=== PATIENT | female | born 1980 | race Caucasian/White ===

== ENCOUNTER 2016-09-20 20:31 | Emergency (ER) | payer OTHER ==
--- NOTE | 2016-09-20 21:42 | ED NURSING NOTES ---
Clinical Report - Nurses [facility] [address] [place] [address] 09/20/2016 20:32 Patient: LINSEY JOHNSON TRIAGE Triage time 20:36 Sep 20 2016. Acuity: LEVEL 4. Chief Complaint: SORE THROAT and (Ear ache). 20:45 09/20/16. Alert. No acute distress. SEPSIS SCREEN: Sepsis Screen. Negative (no infection suspected/documented). TETE COMA SCORE: [place] Coma Scale: 15- eyes open spontaneously (4); best verbal response- oriented x 4 (5); best motor response- obeys commands (6). --20:45 Eryn Woodard 20:36 09/20/16. BP: 118/54. HR: 71. RR: 16. O2 saturation: 100% on room air. Temp: 97.7 F (oral). Pain level now: 6/10. --20:45 Eryn Woodard. Weight: 53 kg stated. Height/Length: 66 inches Per Patient. BMI: 18.9. --20:44 Eryn Woodard. Medications ProAir HFA Inhalation. --20:41 Eryn Woodard Vicodin Oral. --20:41 Eryn Woodard Aspirin Oral (Tablet 81 mg). --20:41 Eryn Woodard Ibuprofen Oral. --20:41 Eryn Woodard Vitamin D Oral. --20:42 Eryn Woodard Vitamin B 12 Oral. --20:42 Eryn Woodard Vitamin c Oral. --20:42 Eryn Woodard. Medication/allergy information source: the patient. --20:45 Eryn Woodard. Allergies None. --20:43 Eryn Woodard Ultram. (rapid heart rate) --20:43 Eryn Woodard Flexeril. (rapid heart rate) --20:44 Eryn Woodard. History Arrived by private vehicle. Historian: patient. Unaccompanied. Primary physician (Pelon). Onset. (A month and half). ( Pt presents today for sore throat with sharp pain in ear when swallowing. Pt also reports cough. Denies N/V/D. Has been seen by Urgent Care, has an appointment on the . Was sick for about 2 weeks with a "bad bug."). She has had facial pain, hoarseness and ear pain. Reports enlarged lymph nodes (L side of face). No fever. Treatment COMMUNITY COORDINATOR: Took Tylenol and ibuprofen. (Sudafed, theraflu, honey). PAST MEDICAL HX: Strep throat. Mononucleosis. Immunizations: up-to-date. Last normal menstrual period- 2011. Has not received seasonal influenza immunization. SOCIAL HX: Heavy tobacco smoker (cigarette)- less than 1 pack per day. Occasional alcohol use. History of heavy drug use: marijuana. FALL RISK ASSESSMENT: Fall risk assessment completed. No fall risk identified. NUTRITIONAL RISK ASSESSMENT: The nutritional risk assessment revealed no deficiencies. FUNCTIONAL ASSESSMENT: Functional assessment: no impairments noted. LEARNING NEEDS ASSESSMENT: The learning needs assessment revealed no barriers. SKIN INTEGRITY ASSESSMENT: Skin integrity risk assessment completed. No skin integrity risk identified. --20:45 Eryn Woodard. 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 --20:37 Eryn Woodard Pleurisy. Contusion. Back Pain. Tetanus Status. GI Bleeding. Abdominal Pain. LNMP - Last Normal Menstrual Period. Atypical Chest Pain. Immunizations. Chest Wall Pain. Substance Abuse. Anxiety Reaction. Abnormal Test. Tension-Type Headache. Neck Pain. --20:37 Eryn Woodard. ADDITIONAL SURGERIES: Appendectomy. Back Surgery. . Dental Surgery. Hysterectomy. Tubal Ligation. --20:37 Eryn Woodard. Assessment The patient states feels the same. --20:45 Eryn Woodard. Interventions ID band on patient. --20:45 Eryn Woodard. PHYSICAL ASSESSMENT 20:45 09/20/16. Ambulatory to room. GENERAL / NEURO / PSYCH: Alert. Oriented X 4. Appears in no acute distress. HEENT: Pupils equal, round and reactive to light. Hoarse voice. Mucous membranes are pink. RESPIRATORY: Respirations not labored. SKIN: Skin is warm and dry. Normal skin turgor. --20:45 Eryn Woodard. NURSING PROGRESS NOTES 20:45 09/20/16. The plan of care for this patient has been created. Head of bed elevated. Reassurance given. Two patient identifiers checked. Call light placed in reach. Side rails up x 1. Bed placed in lowest position. Brakes of bed on. Patient ready for evaluation- chart flagged and ED physician and PA notified. --20:45 Eryn Woodard 20:45 09/20/16. Patient walked to radiology with tech. (20:45 Sep 20 2016). --20:45 Eryn Woodard 20:46 09/20/16. Patient ID band checked for patient name and birthdate: patient confirmed. Throat swab obtained for rapid strep; labeled in the presence of the patient and sent to lab. --20:46 Eryn Woodard. DISPOSITION / DISCHARGE Condition at departure: improved. No learning barriers present. Discharge instructions provided and reviewed with the patient. Reviewed medication(s) side effects, precautions, dosing and course information. Prescription(s) given to the patient. Patient verbalized understanding. Written instructions provided in Latvian. The patient was discharged home. She left the Emergency Department ambulatory and via private vehicle. Patient driving. Medication list reviewed and validated. --22:37 Effie Centeno R.N. 22:36 09/20/16. BP: 114/64. HR: 67. RR: 20. O2 saturation: 99%. Temp: deferred. Pain level now: 02/15. 20:36 09/20/16. BP: 118/54. HR: 71. RR: 16. O2 saturation: 100% on room air. Temp: 97.7 F (oral). Pain level now: 01/16. --22:37 Effie Centeno R.N. Locked/Released at 09/20/2016 22:37 by Effie Centeno R.N.
--- NOTE | 2016-09-20 21:42 | ED NURSING NOTES ---
Clinical Report - Nurses [facility] [address] [place] [address] 09/20/2016 20:32 Patient: LINSEY JOHNSON TRIAGE Triage time 20:36 Sep 20 2016. Acuity: LEVEL 4. Chief Complaint: SORE THROAT and (Ear ache). 20:45 09/20/16. Alert. No acute distress. SEPSIS SCREEN: Sepsis Screen. Negative (no infection suspected/documented). TETE COMA SCORE: [place] Coma Scale: 15- eyes open spontaneously (4); best verbal response- oriented x 4 (5); best motor response- obeys commands (6). --20:45 Eryn Woodard 20:36 09/20/16. BP: 118/54. HR: 71. RR: 16. O2 saturation: 100% on room air. Temp: 97.7 F (oral). Pain level now: 6/10. --20:45 Eryn Woodard. Weight: 53 kg stated. Height/Length: 66 inches Per Patient. BMI: 18.9. --20:44 Eryn Woodard. Medications ProAir HFA Inhalation. --20:41 Eryn Woodard Vicodin Oral. --20:41 Eryn Woodard Aspirin Oral (Tablet 81 mg). --20:41 Eryn Woodard Ibuprofen Oral. --20:41 Eryn Woodard Vitamin D Oral. --20:42 Eryn Woodard Vitamin B 12 Oral. --20:42 Eryn Woodard Vitamin c Oral. --20:42 Eryn Woodard. Medication/allergy information source: the patient. --20:45 Eryn Woodard. Allergies None. --20:43 Eryn Woodard Ultram. (rapid heart rate) --20:43 Eryn Woodard Flexeril. (rapid heart rate) --20:44 Eryn Woodard. History Arrived by private vehicle. Historian: patient. Unaccompanied. Primary physician (Pelon). Onset. (A month and half). ( Pt presents today for sore throat with sharp pain in ear when swallowing. Pt also reports cough. Denies N/V/D. Has been seen by Urgent Care, has an appointment on the . Was sick for about 2 weeks with a "bad bug."). She has had facial pain, hoarseness and ear pain. Reports enlarged lymph nodes (L side of face). No fever. Treatment IT GENERALIST: Took Tylenol and ibuprofen. (Sudafed, theraflu, honey). PAST MEDICAL HX: Strep throat. Mononucleosis. Immunizations: up-to-date. Last normal menstrual period- 2011. Has not received seasonal influenza immunization. SOCIAL HX: Heavy tobacco smoker (cigarette)- less than 1 pack per day. Occasional alcohol use. History of heavy drug use: marijuana. FALL RISK ASSESSMENT: Fall risk assessment completed. No fall risk identified. NUTRITIONAL RISK ASSESSMENT: The nutritional risk assessment revealed no deficiencies. FUNCTIONAL ASSESSMENT: Functional assessment: no impairments noted. LEARNING NEEDS ASSESSMENT: The learning needs assessment revealed no barriers. SKIN INTEGRITY ASSESSMENT: Skin integrity risk assessment completed. No skin integrity risk identified. --20:45 Eryn Woodard. 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 --20:37 Eryn Woodard Pleurisy. Contusion. Back Pain. Tetanus Status. GI Bleeding. Abdominal Pain. LNMP - Last Normal Menstrual Period. Atypical Chest Pain. Immunizations. Chest Wall Pain. Substance Abuse. Anxiety Reaction. Abnormal Test. Tension-Type Headache. Neck Pain. --20:37 Eryn Woodard. ADDITIONAL SURGERIES: Appendectomy. Back Surgery. . Dental Surgery. Hysterectomy. Tubal Ligation. --20:37 Eryn Woodard. Assessment The patient states feels the same. --20:45 Eryn Woodard. Interventions ID band on patient. --20:45 Eryn Woodard. PHYSICAL ASSESSMENT 20:45 09/20/16. Ambulatory to room. GENERAL / NEURO / PSYCH: Alert. Oriented X 4. Appears in no acute distress. HEENT: Pupils equal, round and reactive to light. Hoarse voice. Mucous membranes are pink. RESPIRATORY: Respirations not labored. SKIN: Skin is warm and dry. Normal skin turgor. --20:45 Eryn Woodard. NURSING PROGRESS NOTES 20:45 09/20/16. The plan of care for this patient has been created. Head of bed elevated. Reassurance given. Two patient identifiers checked. Call light placed in reach. Side rails up x 1. Bed placed in lowest position. Brakes of bed on. Patient ready for evaluation- chart flagged and ED physician and PA notified. --20:45 Eryn Woodard 20:45 09/20/16. Patient walked to radiology with tech. (20:45 Sep 20 2016). --20:45 Eryn Woodard 20:46 09/20/16. Patient ID band checked for patient name and birthdate: patient confirmed. Throat swab obtained for rapid strep; labeled in the presence of the patient and sent to lab. --20:46 Eryn Woodard. DISPOSITION / DISCHARGE Condition at departure: improved. No learning barriers present. Discharge instructions provided and reviewed with the patient. Reviewed medication(s) side effects, precautions, dosing and course information. Prescription(s) given to the patient. Patient verbalized understanding. Written instructions provided in Yi. The patient was discharged home. She left the Emergency Department ambulatory and via private vehicle. Patient driving. Medication list reviewed and validated. --22:37 Effie Centeno R.N. 22:36 09/20/16. BP: 114/64. HR: 67. RR: 20. O2 saturation: 99%. Temp: deferred. Pain level now: 02/15. 20:36 09/20/16. BP: 118/54. HR: 71. RR: 16. O2 saturation: 100% on room air. Temp: 97.7 F (oral). Pain level now: 01/16. --22:37 Effie Centeno R.N. Locked/Released at 09/20/2016 22:37 by Effie Centeno R.N.
--- NOTE | 2016-09-20 21:42 | ED ORDER SUMMARY ---
..... Patient: LINSEY JOHNSON OrderSheet [facility] VisitID: [id number] [address] [place] [address] 36y, F Registration Date/Time: 09/20/2016 ORDER SHEET Weight: 53.0 kg (stated) Allergies: None, Ultram, Flexeril GENERAL ORDERS: Chest 2V Urgent (20:43 09/20/2016 EKoroleangelo P.A.-C) (Ack 20:45 AMcQuoid ER Tech1) (20:46 ASchmuck) Culture, Strep Screen Urgent (20:43 09/20/2016 EKoroleva P.A.-C) (Ack 20:45 AMcQuoid ER Tech1) (20:46 ASchmuck) MEDICATION ORDERS: IV FLUIDS: ORDER SHEET NOTES: [Electronically signed by Amy HawkinsAEduard (22:22 09/20/2016)] [Electronically signed by Effie Centeno R.N. (22:37 09/20/2016)] [Electronically locked/signed by Effie Centeno R.N. (22:37 09/20/2016)]
--- NOTE | 2016-09-20 21:42 | ED CLINICAL REPORT ---
Clinical Report - Physicians/Mid Levels [facility] [address] [place] [address] 09/20/2016 20:32 [id number] Time Seen: 20:44 Sep 20 2016. Arrived- By private vehicle. Historian- patient. HISTORY OF PRESENT ILLNESS Chief Complaint: SORE THROAT. This started today and is still present. Pain described as moderate. The patient has had a sore throat, nasal congestion and a nasal discharge. No toothache. (Patient has been ill over the last 4-6 weeks, recently seen in the urgent care clinic about 2 weeks previously,has had a viral illness. Has not been on antibiotics. No hemoptysis. Has not had any recent travel. No emesis or diarrhea.). REVIEW OF SYSTEMS No fever, abdominal pain or headache. She has had a cough. All systems otherwise negative, except as recorded above. 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 Pleurisy. Contusion. Back Pain. Tetanus Status. GI Bleeding. Abdominal Pain. LNMP - Last Normal Menstrual Period. Atypical Chest Pain. Immunizations. Substance Abuse. Anxiety Reaction. Abnormal Test. Tension-Type Headache. Neck Pain. Additional Surgeries: Appendectomy. Back Surgery. . Dental Surgery. Hysterectomy. Tubal Ligation. Medications: Vitamin c Oral. Vitamin B 12 Oral. Vitamin D Oral. Ibuprofen Oral. Aspirin Oral (Tablet 81 mg). Vicodin Oral. ProAir HFA Inhalation. Allergies: Flexeril. (rapid heart rate) None. Ultram. (rapid heart rate). SOCIAL HISTORY Smoker- current status unknown. Alcohol use. History of drug use: marijuana. Not an IV drug user. ADDITIONAL NOTES The nursing notes have been reviewed. PHYSICAL EXAM Vital Signs: 09/20/2016 20:36 BP: 118/54. HR: 71. RR: 16. O2 saturation: 100%. Temp: 97.7 F. Pain level now: 6/10. Appearance: Alert. Head: Normal external inspection. ENT: Ears normal. Nose normal. Pharynx normal. Lips normal. No trismus present. Uvula midline. No tonsillar exudate, muffled or hoarse voice or dental decay. Neck: Trachea midline. No adenopathy. No lymphadenopathy. CVS: Normal heart rate and rhythm. Heart sounds normal. Respiratory: No respiratory distress. Breath sounds normal. No stridor or rales. Abdomen: Soft. Skin: Normal skin color. Neuro: Oriented X 3. LABS, X-RAYS, AND EKG Chest X-ray: No acute disease. Normal lung markings present. Normal heart size. Mediastinum normal. Great vessels normal. No fracture. Views: PA and lateral. Technique: good. Interpretation time: 2149. Laboratory Tests: Culture, Strep Screen: (KAYLEIGH: 09/20/2016 20:45) ( MsgRcvd 09/20/2016 21:40) Final results Test Result Flag Units (Reference) RAPID STREP SCREEN - THROAT DATE: 09/20/16 NEGATIVE SCREEN: RAPID STREP SCREEN NEGATIVE; CONFIRMATION TO FOLLOW . PROGRESS AND PROCEDURES Course of Care: Ongoing sx for months. Patient afebrile. NO lymphadneopathy. Lungs clear. WIll tx for bronchitis. Pt stable. Uvula midline. Euvolimic. CXR neg. 09/20/2016 20:36 BP: 118/54. HR: 71. RR: 16. O2 saturation: 100%. Temp: 97.7 F. Pain level now: 6/10. Patient is stable. Symptoms better. Patient/family counseled. Differential Diagnosis: I considered viral bronchitis, laryngotracheobronchitis, viral pneumonia, bacterial bronchitis, bacterial pneumonia, mycoplasmal bronchitis, chlamydial bronchitis and bronchospasm as a possible cause of cough in this patient. This is a partial list of diagnoses considered. Disposition: Discharged. CLINICAL IMPRESSION Bronchitis. INSTRUCTIONS Drink plenty of fluids. Prescription Medications: Zithromax 250 mg tablets: take 2 orally today, followed by 1 daily for the next 4 days. No refills. Substitution is permissible. Ibuprofen 600 mg tablets: take 1 tablet orally every 8 hours for 3 days, as needed for pain. Dispense ten (10). No refill. OTC Medications: Tylenol ER 650 mg (available over the counter): take 1 orally every 8 hours for 3 days, as needed for fever. Dispense ten (10). No refill. Substitution is permissible. Follow-up: Follow up with your doctor in three days. (Electronically signed by Amy Hawkins P.A.-C 09/20/2016 22:22)
--- NOTE | 2016-09-20 21:42 | ED ORDER SUMMARY ---
..... Patient: LINSEY JOHNSON OrderSheet [facility] VisitID: [id number] [address] [place] [address] 36y, F Registration Date/Time: 09/20/2016 ORDER SHEET Weight: 53.0 kg (stated) Allergies: None, Ultram, Flexeril GENERAL ORDERS: Chest 2V Urgent (20:43 09/20/2016 EKoroleangelo P.A.-C) (Ack 20:45 AMcQuoid ER Tech1) (20:46 ASchmuck) Culture, Strep Screen Urgent (20:43 09/20/2016 EKoroleva P.A.-C) (Ack 20:45 AMcQuoid ER Tech1) (20:46 ASchmuck) MEDICATION ORDERS: IV FLUIDS: ORDER SHEET NOTES: [Electronically signed by Amy HawkinsAEduard (22:22 09/20/2016)] [Electronically signed by Effie Centeno R.N. (22:37 09/20/2016)] [Electronically locked/signed by Effie Centeno R.N. (22:37 09/20/2016)]
--- NOTE | 2016-09-20 22:38 | ED MED RECONCILIATION SUMMARY ---
Patient: LINSEY JOHNSON Medication Reconciliation Report [facility] VisitID: [id number] [address] [place] [address] 36y, F Registration Date/Time: 09/20/2016 Weight: 53.0 kg Height/Length: 66 in. BMI: 18.9 ALLERGIES: Flexeril, None, Ultram The patient's Home Medications are listed below: THE FOLLOWING MEDICATIONS NEED TO BE RECONCILED: Aspirin Oral (81 mg) Ibuprofen Oral ProAir HFA Inhalation Vicodin Oral Vitamin B 12 Oral Vitamin c Oral Vitamin D Oral The source(s) of the original Home Medication information: patient The following Medications were given to the patient in the Emergency Department: None. The following Medications were prescribed to the patient: Zithromax 250 mg tablets: take 2 orally today, followed by 1 daily for the next 4 days. No refills. Substitution is permissible. -- Amy Hawkins, P.A.-C Ibuprofen 600 mg tablets: take 1 tablet orally every 8 hours for 3 days, as needed for pain. Dispense ten (10). No refill. -- Amy Hawkins, P.A.-C Tylenol ER 650 mg (available over the counter): take 1 orally every 8 hours for 3 days, as needed for fever. Dispense ten (10). No refill. Substitution is permissible. -- Amy Hawkins, P.A.-C
--- NOTE | 2016-09-20 22:38 | ED MAR SUMMARY ---
..... Medication Administration Record [facility] [address], [place] [id number] Patient: LINSEY JOHNSON Visit ID: [id number] 36y, F Weight: 53.0 kg Height/Length: 66 in BMI: 18.9 ALLERGIES: Flexeril, Ultram, None
--- NOTE | 2016-09-20 22:38 | ED MED RECONCILIATION SUMMARY ---
Patient: LINSEY JOHNSON Medication Reconciliation Report [facility] VisitID: [id number] [address] [place] [address] 36y, F Registration Date/Time: 09/20/2016 Weight: 53.0 kg Height/Length: 66 in. BMI: 18.9 ALLERGIES: Flexeril, None, Ultram The patient's Home Medications are listed below: THE FOLLOWING MEDICATIONS NEED TO BE RECONCILED: Aspirin Oral (81 mg) Ibuprofen Oral ProAir HFA Inhalation Vicodin Oral Vitamin B 12 Oral Vitamin c Oral Vitamin D Oral The source(s) of the original Home Medication information: patient The following Medications were given to the patient in the Emergency Department: None. The following Medications were prescribed to the patient: Zithromax 250 mg tablets: take 2 orally today, followed by 1 daily for the next 4 days. No refills. Substitution is permissible. -- Amy Hawkins, P.A.-C Ibuprofen 600 mg tablets: take 1 tablet orally every 8 hours for 3 days, as needed for pain. Dispense ten (10). No refill. -- Amy Hawkins, P.A.-C Tylenol ER 650 mg (available over the counter): take 1 orally every 8 hours for 3 days, as needed for fever. Dispense ten (10). No refill. Substitution is permissible. -- Amy Hawkins, P.A.-C
--- NOTE | 2016-09-20 22:38 | ED MAR SUMMARY ---
..... Medication Administration Record [facility] [address], [place] [id number] Patient: LINSEY JOHNSON Visit ID: [id number] 36y, F Weight: 53.0 kg Height/Length: 66 in BMI: 18.9 ALLERGIES: Flexeril, Ultram, None
--- NOTE | 2016-09-20 22:38 | ED DISCHARGE INSTRUCTIONS ---
Patient: LINSEY JOHNSON General Instructions [facility] VisitID: [id number] [address] [place] [address] 36y, F Registration Date/Time: 09/20/2016 Bronchitis. INSTRUCTIONS Drink plenty of fluids. Prescription Medications: Zithromax 250 mg tablets: take 2 orally today, followed by 1 daily for the next 4 days. No refills. Substitution is permissible. Ibuprofen 600 mg tablets: take 1 tablet orally every 8 hours for 3 days, as needed for pain. Dispense ten (10). No refill. OTC Medications: Tylenol ER 650 mg (available over the counter): take 1 orally every 8 hours for 3 days, as needed for fever. Dispense ten (10). No refill. Substitution is permissible. Follow-up: Follow up with your doctor in three days. ADDITIONAL INFORMATION Bronchitis (Adult: Abx Tx) BRONCHITIS is an infection of the air passages (bronchial tubes). It often occurs during the common cold. Symptoms include cough with mucus (phlegm) and low-grade fever. Bronchitis usually lasts 7-14 days. Mild cases can be treated with simple home remedies. More severe infection is treated with an antibiotic. Home Care: If symptoms are severe, rest at home for the first 2-3 days. When you resume activity, don't let yourself get too tired. Do not smoke. Avoid being exposed to the smoke of others. You may use acetaminophen (Tylenol) or ibuprofen (Motrin, Advil) to control fever or pain, unless another medicine was prescribed for this. [NOTE: If you have chronic liver or kidney disease or ever had a stomach ulcer or GI bleeding, talk with your doctor before using these medicines.] Your appetite may be poor, so a light diet is fine. Avoid dehydration by drinking 6-8 glasses of fluids per day (water, soft, drinks, juices, tea, soup, etc.). Extra fluids will help loosen secretions in the lungs. [id number] cough medicines that containdextromethorphan(such as Robitussin DM) and decongestants (Actifed or Sudafed) may help relieve cough and congestion. [NOTE: Do not use decongestants if you have high blood pressure.] Finish all antibiotic medicine, even if you are feeling better after only a few days. Follow Up with your doctor or as directed if you dont start to feel better after three days. [NOTE: If you are age 65 or older, or if you have chronic asthma or COPD, we recommend a PNEUMOCOCCAL VACCINATION every five years and a yearly INFLUENZAVACCINATION (FLU-SHOT) every . Ask your doctor about this. If you had an X-ray, a radiologist will review it. You will be notified of any new findings that may affect your care.] Get Prompt Medical Attention if any of the following occur: Fever over 100.4F (38.0C) for more than three days Trouble breathing, wheezing or pain with breathing Coughing up blood or increased amounts of colored sputum Weakness, drowsiness, headache, facial pain, ear pain or a stiff neck You have been given the following additional information: Bronchitis, Antiobiotic Treatment (Adult) (Electronically signed by Amy Hawkins P.A.-C 09/20/2016 22:22)
--- NOTE | 2016-09-20 23:28 | DIAGNOSTIC IMAGING REPORT ---
PROCEDURE: XR CHEST 2 VIEW INDICATION: FEVER TECHNIQUE: PA and lateral views. COMPARISON: Compared to 05/21/2016. FINDINGS: Lungs are clear. Heart and mediastinum are normal. Thorax is normal. IMPRESSION: 1. Negative chest.
== END 2016-09-20 22:15 | disposition home or self-care (01) ==
LOC: ED SRH 20:31
DX: J40 Bronchitis, not specified as acute or chronic (principal); F17.210 Nicotine dependence, cigarettes, uncomplicated; Z88.8 Allergy status to other drugs, medicaments and biological substances
CPT/HCPCS: 90154; 90159

== ENCOUNTER 2016-10-12 06:40 | Emergency (ER) | payer OTHER ==
--- NOTE | 2016-10-12 08:04 | ED CLINICAL REPORT ---
Clinical Report - Physicians/Mid Levels [facility] [address] [place] [address] 10/12/2016 6:40 Patient: LINSEY JOHNSON Time Seen: 06:52. Arrived- By private vehicle. Historian- patient. HISTORY OF PRESENT ILLNESS Chief Complaint: Chief Complaint- R knee pain. The injury happened last night Pt has a h/o chronic knee pain, which has been acting up for 2 weeks, but got worse last night. No acute injury. Occurred at home. Injury secondary to other mechansim (PT has an injury dating back to when she was 12, and has had issues with the knee ever since.). Patient is experiencing moderate pain. No other injury. REVIEW OF SYSTEMS The patient complains of pain on weight bearing. She has had swelling. No tingling, weakness, numbness, suspected foreign body or skin laceration. All systems otherwise negative, except as recorded above. 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 Infectious Mononucleosis. Tetanus Status. LNMP - Last Normal Menstrual Period. Immunizations. Substance Abuse. Anxiety Reaction. Tension-Type Headache. Additional Surgeries: Appendectomy. Back Surgery. . Dental Surgery. Hysterectomy. Tubal Ligation. Medications: Potassium Chloride Oral. Aspirin Oral (Tablet 81 mg). Ibuprofen Oral. ProAir HFA Inhalation. Vicodin Oral 7.5 mg, 4x a day. Vitamin B 12 Oral. Vitamin c Oral. Vitamin D Oral. Allergies: No Known Drug Allergy. SOCIAL HISTORY Smoker- current status unknown. History of drug use: marijuana. No alcohol use. ADDITIONAL NOTES The nursing notes have been reviewed. PHYSICAL EXAM Vital Signs: 10/12/2016 06:45 BP: 119/72. HR: 96. RR: 16. O2 saturation: 98%. Temp: 98 F. Pain level now: 6/10. Have been reviewed. Appearance: Alert. Oriented X3. No acute distress. Head: Head atraumatic. Eyes: Eyes normal inspection. ENT: Nose normal. Neck: Normal inspection. No decreased ROM in the neck. CVS: Pulses normal. Respiratory: No respiratory distress. Back: ROM normal. Skin: Skin intact. Skin warm and dry. Normal skin color. Normal skin turgor. Extremities: Right knee: moderate tenderness located in the suprapatellar area, medial joint line and lateral joint line. Limited ROM secondary to pain (diminished flexion). Neurovascular intact distally. (ROM limitation is mild.). No ligamentous laxity present. No joint effusion. No erythema, swelling, laceration, abrasion or ecchymosis. No puncture wound, foreign body or deformity. Lower extremity exam otherwise negative. Extremities otherwise negative. Gait: Gait not tested due to pain. Neuro, Vascular and Tendons: Vascular status intact. Sensation intact. Motor intact. Tendon function intact. Neuro: Oriented X 3. No motor deficit. No sensory deficit. LABS, X-RAYS, AND EKG Rt Knee X-ray: No fracture. Normal alignment. No bony lesion, air in the soft tissue or foreign body. Soft tissues normal. Joint spaces normal. Views: AP, lateral and oblique. Technique: good. The X-rays were independently viewed by me and interpreted contemporaneously by me. Prior films were not available for comparison. Pulse Oximetry: 10/12/2016 06:45 O2 saturation: 98%. (FIO2 - room air). Interpretation: normal. PROGRESS AND PROCEDURES Course of Care: X-ray was negative. Pt was treated symptomatically with Toradol (she is driving). I d/w her that she may need to have another MRI. I will refer her to ortho, or she may see her PCP for this (Pelon). Patient counseled in person regarding the patient's stable condition, test results, diagnosis and need for follow-up. Concerns were addressed. Old medical records reviewed. Disposition: Discharged. Condition: stable and improved. CLINICAL IMPRESSION (Knee pain, chronic, with acute exacerbation, uncertain etiology.). INSTRUCTIONS Apply ice for 20 minutes three times a day as needed and until better. Don't apply ice directly to skin and don't use while asleep. You may walk and bear weight as tolerated. (Your x-rays look great. Please follow up with the orthopedic surgeon, as well as with Dr. Bird, to schedule an MRI and discuss options for management.). Warnings: GENERAL WARNINGS: Return or contact your physician immediately if your condition worsens or changes unexpectedly, if not improving as expected, or if other problems arise. Your Current Medications: CONTINUE TAKING THE FOLLOWING MEDICATIONS: Aspirin Oral : Tablet 81 mg. Ibuprofen Oral. Potassium Chloride Oral. ProAir HFA Inhalation. Vicodin Oral : 7.5 mg 4x a day. Vitamin B 12 Oral. Vitamin c Oral. Vitamin D Oral. Prescription Medications: Percocet 5 mg/325 mg: take 1-2 tablets orally every 4 hours as needed for pain. Dispense twelve (12). No refill. Substitution is permissible. Understanding of the discharge instructions verbalized by patient. Follow-up with: [facility], , [address], , [place], [address] Follow up. Call for the next available appointment. Reason for referral: Follow up ER visit for knee pain. (Electronically signed by Evette Thompson MD 10/12/2016 18:02)
--- NOTE | 2016-10-12 08:04 | ED NURSING NOTES ---
Clinical Report - Nurses [facility] [address] [place] [address] 10/12/2016 6:40 Patient: LINSEY JOHNSON TRIAGE Triage time 06:45. Chief Complaint: RIGHT LOWER EXTREMITY PAIN. Location of symptoms- right knee. 06:51. --06:51 Jose Antonio Farooq R.N. 06:45 10/12/16. BP: 119/72. HR: 96. RR: 16. O2 saturation: 98%. Temp: 98 F. Pain level now: 01/16. --06:51 Jose Antonio Farooq R.N. Acuity: LEVEL 4. --06:51 Jose Antonio Farooq R.N. Weight: 53 kg stated. Height/Length: 66 inches Per Patient. BMI: 18.9. --06:49 Jose Antonio Farooq R.N. Medications Aspirin Oral (Tablet 81 mg). Ibuprofen Oral. ProAir HFA Inhalation. Vicodin Oral 7.5 mg, 4x a day. Vitamin B 12 Oral. Vitamin c Oral. Vitamin D Oral. --06:48 Jose Antonio Farooq R.N. Potassium Chloride Oral. --06:48 Jose Antonio Farooq R.N. Medication/allergy information source: the patient. --06:51 Jose Antonio Farooq R.N. Allergies No Known Drug Allergy. --06:49 Jose Antonio Farooq R.N. History Arrived by private vehicle. Historian: patient. Unaccompanied. Primary physician (Pelon). No injury occurred. This occurred (2 weeks ago). ( Patient reports right knee pain for about 2 weeks, which is much worse this AM, states it was swollen earlier at home). Treatment BENEFIT SPECIALIST: Ice and took ibuprofen. (Hydrocodone). PAST MEDICAL HX: Tetanus status: up-to-date. Immunizations: up-to-date. The patient has had a hysterectomy. SOCIAL HX: Current every day light tobacco smoker- less than 1/2 a pack per day. History of occasional drug use: marijuana. No alcohol use. ABUSE ASSESSMENT: No report of abuse. FALL RISK ASSESSMENT: Fall risk assessment completed. No fall risk identified. NUTRITIONAL RISK ASSESSMENT: The nutritional risk assessment revealed no deficiencies. FUNCTIONAL ASSESSMENT: Functional assessment: no impairments noted. LEARNING NEEDS ASSESSMENT: The learning needs assessment revealed no barriers. SKIN INTEGRITY ASSESSMENT: Skin integrity risk assessment completed. No skin integrity risk identified. --06:51 Jose Antonio Farooq R.N. 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 --06:49 Jose Antonio Farooq R.N. Bronchitis. Infectious Mononucleosis. Strep Throat. Back Pain. Substance Abuse. Anxiety Reaction. Tension-Type Headache. --06:49 Jose Antonio Farooq R.N. ADDITIONAL SURGERIES: Appendectomy. Back Surgery. . Dental Surgery. Hysterectomy. Tubal Ligation. --06:49 Jose Antonio Farooq R.N. Interventions To treatment room. --06:51 Jose Antonio Farooq R.N. PHYSICAL ASSESSMENT 06:52. Ambulatory to room. GENERAL / NEURO / PSYCH: Oriented X 4. Alert. EXTREMITIES: Neuro-vascular status intact to the extremity. SKIN: Skin intact. Skin is warm and dry. --06:52 Jose Antonio Farooq R.N. NURSING PROGRESS NOTES 06:52. Two patient identifiers checked. Call light placed in reach. Bed placed in lowest position. Brakes of bed on. Patient ready for evaluation- chart flagged. --06:52 Jose Antonio Farooq R.N. 07:03. Care transferred and report given (Devin SAMSON). --07:03 Jose Antonio Farooq R.N. 07:06 10/12/16. Care transferred and report received. --07:06 Devin Sadler R.N. 07:20 10/12/16. Two patient identifiers checked. Call light placed in reach. Bed placed in lowest position. Brakes of bed on. Patient informed about reason for wait and about plan of care. ( pt ambulated to bathroom with limp.). --07:20 Swapna Barrientos R.N. 07:24 10/12/16. ( X-ray completed at bedside). --07:25 Devin Sadler R.N. 08:22 10/12/2016 Toradol (Ketorolac Tromethamine) IM 60 mg given. Given in the right anterior lateral thigh. Allergies verified and confirmed 5 rights. --08:22 Swapna Barrientos R.N. DISPOSITION / DISCHARGE 08:41 10/12/16. No learning barriers present. Discharge instructions provided and reviewed with the patient. Reviewed warnings. Reviewed medication(s). Treatments reviewed. Reviewed referrals. Activity restrictions reviewed. Work note given. Patient verbalized understanding. The patient was discharged by the physician. She was discharged home. She left the Emergency Department ambulatory and via private vehicle. Patient driving. --08:41 Swapna Barrientos R.N. 08:37 10/12/16. BP: 118/86. HR: 74. RR: 17. O2 saturation: 95% on room air. Temp: deferred. Pain level now: 01/16. --08:41 Swapna Barrientos R.N. Locked/Released at 10/12/2016 10:04 by Swapna Barrientos R.N.
--- NOTE | 2016-10-12 08:04 | ED CLINICAL REPORT ---
Clinical Report - Physicians/Mid Levels [facility] [address] [place] [address] 10/12/2016 6:40 Patient: LINSEY JOHNSON Time Seen: 06:52. Arrived- By private vehicle. Historian- patient. HISTORY OF PRESENT ILLNESS Chief Complaint: Chief Complaint- R knee pain. The injury happened last night Pt has a h/o chronic knee pain, which has been acting up for 2 weeks, but got worse last night. No acute injury. Occurred at home. Injury secondary to other mechansim (PT has an injury dating back to when she was 12, and has had issues with the knee ever since.). Patient is experiencing moderate pain. No other injury. REVIEW OF SYSTEMS The patient complains of pain on weight bearing. She has had swelling. No tingling, weakness, numbness, suspected foreign body or skin laceration. All systems otherwise negative, except as recorded above. 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 Infectious Mononucleosis. Tetanus Status. LNMP - Last Normal Menstrual Period. Immunizations. Substance Abuse. Anxiety Reaction. Tension-Type Headache. Additional Surgeries: Appendectomy. Back Surgery. . Dental Surgery. Hysterectomy. Tubal Ligation. Medications: Potassium Chloride Oral. Aspirin Oral (Tablet 81 mg). Ibuprofen Oral. ProAir HFA Inhalation. Vicodin Oral 7.5 mg, 4x a day. Vitamin B 12 Oral. Vitamin c Oral. Vitamin D Oral. Allergies: No Known Drug Allergy. SOCIAL HISTORY Smoker- current status unknown. History of drug use: marijuana. No alcohol use. ADDITIONAL NOTES The nursing notes have been reviewed. PHYSICAL EXAM Vital Signs: 10/12/2016 06:45 BP: 119/72. HR: 96. RR: 16. O2 saturation: 98%. Temp: 98 F. Pain level now: 6/10. Have been reviewed. Appearance: Alert. Oriented X3. No acute distress. Head: Head atraumatic. Eyes: Eyes normal inspection. ENT: Nose normal. Neck: Normal inspection. No decreased ROM in the neck. CVS: Pulses normal. Respiratory: No respiratory distress. Back: ROM normal. Skin: Skin intact. Skin warm and dry. Normal skin color. Normal skin turgor. Extremities: Right knee: moderate tenderness located in the suprapatellar area, medial joint line and lateral joint line. Limited ROM secondary to pain (diminished flexion). Neurovascular intact distally. (ROM limitation is mild.). No ligamentous laxity present. No joint effusion. No erythema, swelling, laceration, abrasion or ecchymosis. No puncture wound, foreign body or deformity. Lower extremity exam otherwise negative. Extremities otherwise negative. Gait: Gait not tested due to pain. Neuro, Vascular and Tendons: Vascular status intact. Sensation intact. Motor intact. Tendon function intact. Neuro: Oriented X 3. No motor deficit. No sensory deficit. LABS, X-RAYS, AND EKG Rt Knee X-ray: No fracture. Normal alignment. No bony lesion, air in the soft tissue or foreign body. Soft tissues normal. Joint spaces normal. Views: AP, lateral and oblique. Technique: good. The X-rays were independently viewed by me and interpreted contemporaneously by me. Prior films were not available for comparison. Pulse Oximetry: 10/12/2016 06:45 O2 saturation: 98%. (FIO2 - room air). Interpretation: normal. PROGRESS AND PROCEDURES Course of Care: X-ray was negative. Pt was treated symptomatically with Toradol (she is driving). I d/w her that she may need to have another MRI. I will refer her to ortho, or she may see her PCP for this (Pelon). Patient counseled in person regarding the patient's stable condition, test results, diagnosis and need for follow-up. Concerns were addressed. Old medical records reviewed. Disposition: Discharged. Condition: stable and improved. CLINICAL IMPRESSION (Knee pain, chronic, with acute exacerbation, uncertain etiology.). INSTRUCTIONS Apply ice for 20 minutes three times a day as needed and until better. Don't apply ice directly to skin and don't use while asleep. You may walk and bear weight as tolerated. (Your x-rays look great. Please follow up with the orthopedic surgeon, as well as with Dr. Bird, to schedule an MRI and discuss options for management.). Warnings: GENERAL WARNINGS: Return or contact your physician immediately if your condition worsens or changes unexpectedly, if not improving as expected, or if other problems arise. Your Current Medications: CONTINUE TAKING THE FOLLOWING MEDICATIONS: Aspirin Oral : Tablet 81 mg. Ibuprofen Oral. Potassium Chloride Oral. ProAir HFA Inhalation. Vicodin Oral : 7.5 mg 4x a day. Vitamin B 12 Oral. Vitamin c Oral. Vitamin D Oral. Prescription Medications: Percocet 5 mg/325 mg: take 1-2 tablets orally every 4 hours as needed for pain. Dispense twelve (12). No refill. Substitution is permissible. Understanding of the discharge instructions verbalized by patient. Follow-up with: [facility], , [address], , [place], [address] Follow up. Call for the next available appointment. Reason for referral: Follow up ER visit for knee pain. (Electronically signed by Evette Thompson MD 10/12/2016 18:02)
--- NOTE | 2016-10-12 08:04 | ED ORDER SUMMARY ---
..... Patient: LINSEY JOHNSON OrderSheet [facility] VisitID: [id number] [place] [address] 36y, F Registration Date/Time: 10/12/2016 ORDER SHEET Weight: 53.0 kg (stated) Allergies: No Known Drug Allergy GENERAL ORDERS: Knee 4V Right Urgent (07:02 10/12/2016 Main TOM) (Ack 7:04 [facility] Retail Performance Specialist) (7:30 Fernanda R.N.) MEDICATION ORDERS: Toradol IM 60 mg (NOW) (08:01 10/12/2016 Main TOM) (Ack 8:03 Rola R.N.) (8:22 Rola R.N.) IV FLUIDS: ORDER SHEET NOTES: [Electronically signed by Swapna Barrientos R.N. (10:04 10/12/2016)] [Electronically signed by Evette Thompson MD (18:02 10/12/2016)] [Electronically locked/signed by Swapna Barrientos R.N. (10:04 10/12/2016)]
--- NOTE | 2016-10-12 08:04 | ED ORDER SUMMARY ---
..... Patient: LINSEY JOHNSON OrderSheet [facility] VisitID: [id number] [place] [address] 36y, F Registration Date/Time: 10/12/2016 ORDER SHEET Weight: 53.0 kg (stated) Allergies: No Known Drug Allergy GENERAL ORDERS: Knee 4V Right Urgent (07:02 10/12/2016 Main TOM) (Ack 7:04 [facility] Cold Storage Worker) (7:30 Fernanda R.N.) MEDICATION ORDERS: Toradol IM 60 mg (NOW) (08:01 10/12/2016 Main TOM) (Ack 8:03 Rola R.N.) (8:22 Rola R.N.) IV FLUIDS: ORDER SHEET NOTES: [Electronically signed by Swapna Barrientos R.N. (10:04 10/12/2016)] [Electronically signed by Evette Thompson MD (18:02 10/12/2016)] [Electronically locked/signed by Swapna Barrientos R.N. (10:04 10/12/2016)]
--- NOTE | 2016-10-12 08:16 | DIAGNOSTIC IMAGING REPORT ---
PROCEDURE: XR KNEE 4 VIEWS - RIGHT INDICATION: PAIN IN JOINT TECHNIQUE: Four views of the right knee. COMPARISON: None. FINDINGS: Normal mineralization. No fractures. Normal osseous alignment. No joint effusion. No suspicious soft-tissue calcification or radiodense foreign bodies. IMPRESSION: 1. Intact right knee.
--- NOTE | 2016-10-12 18:02 | ED MED RECONCILIATION SUMMARY ---
Patient: LINSEY JOHNSON Medication Reconciliation Report [facility] VisitID: [id number] [place] [address] 36y, F Registration Date/Time: 10/12/2016 Weight: 53.0 kg Height/Length: 66 in. BMI: 18.9 ALLERGIES: No Known Drug Allergy The patient's Home Medications are listed below: CONTINUE TAKING THE FOLLOWING MEDICATIONS: Aspirin Oral (81 mg) Ibuprofen Oral Potassium Chloride Oral ProAir HFA Inhalation Vicodin Oral 7.5 mg, 4x a day Vitamin B 12 Oral Vitamin c Oral Vitamin D Oral The source(s) of the original Home Medication information: patient The following Medications were given to the patient in the Emergency Department: Toradol [IM] IM 60 mg, administered: 10/12/2016 8:22:00 AM The following Medications were prescribed to the patient: Percocet 5 mg/325 mg: take 1-2 tablets orally every 4 hours as needed for pain. Dispense twelve (12). No refill. Substitution is permissible. -- Evette Thompson MD
--- NOTE | 2016-10-12 18:02 | ED DISCHARGE INSTRUCTIONS ---
Patient: LINSEY JOHNSON General Instructions [facility] VisitID: [id number] [address] [address] 36y, F Registration Date/Time: 10/12/2016 (Knee pain, chronic, with acute exacerbation, uncertain etiology.). INSTRUCTIONS Apply ice for 20 minutes three times a day as needed and until better. Don't apply ice directly to skin and don't use while asleep. You may walk and bear weight as tolerated. (Your x-rays look great. Please follow up with the orthopedic surgeon, as well as with Dr. Bird, to schedule an MRI and discuss options for management.). Warnings: GENERAL WARNINGS: Return or contact your physician immediately if your condition worsens or changes unexpectedly, if not improving as expected, or if other problems arise. Your Current Medications: CONTINUE TAKING THE FOLLOWING MEDICATIONS: Aspirin Oral : Tablet 81 mg. Ibuprofen Oral. Potassium Chloride Oral. ProAir HFA Inhalation. Vicodin Oral : 7.5 mg 4x a day. Vitamin B 12 Oral. Vitamin c Oral. Vitamin D Oral. Prescription Medications: Percocet 5 mg/325 mg: take 1-2 tablets orally every 4 hours as needed for pain. Dispense twelve (12). No refill. Substitution is permissible. Understanding of the discharge instructions verbalized by patient. Follow-up with: [facility], , [address], [place], [address] Follow up. Call for the next available appointment. Reason for referral: Follow up ER visit for knee pain. You may walk and bear weight as tolerated. (Electronically signed by Evette Thompson MD 10/12/2016 18:02)
--- NOTE | 2016-10-12 18:02 | ED MED RECONCILIATION SUMMARY ---
Patient: LINSEY JOHNSON Medication Reconciliation Report [facility] VisitID: [id number] [place] [address] 36y, F Registration Date/Time: 10/12/2016 Weight: 53.0 kg Height/Length: 66 in. BMI: 18.9 ALLERGIES: No Known Drug Allergy The patient's Home Medications are listed below: CONTINUE TAKING THE FOLLOWING MEDICATIONS: Aspirin Oral (81 mg) Ibuprofen Oral Potassium Chloride Oral ProAir HFA Inhalation Vicodin Oral 7.5 mg, 4x a day Vitamin B 12 Oral Vitamin c Oral Vitamin D Oral The source(s) of the original Home Medication information: patient The following Medications were given to the patient in the Emergency Department: Toradol [IM] IM 60 mg, administered: 10/12/2016 8:22:00 AM The following Medications were prescribed to the patient: Percocet 5 mg/325 mg: take 1-2 tablets orally every 4 hours as needed for pain. Dispense twelve (12). No refill. Substitution is permissible. -- Evette Thompson MD
--- NOTE | 2016-10-12 18:02 | ED MAR SUMMARY ---
..... Medication Administration Record [facility] [address] [place] [address] Patient: LINSEY JOHNSON Visit ID: [id number] 36y, F Weight: 53.0 kg Height/Length: 66 in BMI: 18.9 ALLERGIES: No Known Drug Allergy Given 08:22 10/12/2016 Swapna Barrientos R.N. Medication Administered: TORADOL [IM] (KETOROLAC TROMETHAMINE), Dose: 60 mg IM. Medication Ordered: Toradol IM 60 mg (NOW).
--- NOTE | 2016-10-12 18:02 | ED DISCHARGE INSTRUCTIONS ---
Patient: LINSEY JOHNSON General Instructions [facility] VisitID: [id number] [address] [place] [address] 36y, F Registration Date/Time: 10/12/2016 (Knee pain, chronic, with acute exacerbation, uncertain etiology.). INSTRUCTIONS Apply ice for 20 minutes three times a day as needed and until better. Don't apply ice directly to skin and don't use while asleep. You may walk and bear weight as tolerated. (Your x-rays look great. Please follow up with the orthopedic surgeon, as well as with Dr. Bird, to schedule an MRI and discuss options for management.). Warnings: GENERAL WARNINGS: Return or contact your physician immediately if your condition worsens or changes unexpectedly, if not improving as expected, or if other problems arise. Your Current Medications: CONTINUE TAKING THE FOLLOWING MEDICATIONS: Aspirin Oral : Tablet 81 mg. Ibuprofen Oral. Potassium Chloride Oral. ProAir HFA Inhalation. Vicodin Oral : 7.5 mg 4x a day. Vitamin B 12 Oral. Vitamin c Oral. Vitamin D Oral. Prescription Medications: Percocet 5 mg/325 mg: take 1-2 tablets orally every 4 hours as needed for pain. Dispense twelve (12). No refill. Substitution is permissible. Understanding of the discharge instructions verbalized by patient. Follow-up with: [facility], , [address], [place], [address] Follow up. Call for the next available appointment. Reason for referral: Follow up ER visit for knee pain. You may walk and bear weight as tolerated. (Electronically signed by Evette Thompson MD 10/12/2016 18:02)
--- NOTE | 2016-10-12 18:02 | ED MAR SUMMARY ---
..... Medication Administration Record Located Within [facility] [address] [place] [address] Patient: LINSEY JOHNSON Visit ID: [id number] 36y, F Weight: 53.0 kg Height/Length: 66 in BMI: 18.9 ALLERGIES: No Known Drug Allergy Given 08:22 10/12/2016 Swapna Barrientos R.N. Medication Administered: TORADOL [IM] (KETOROLAC TROMETHAMINE), Dose: 60 mg IM. Medication Ordered: Toradol IM 60 mg (NOW).
== END 2016-10-12 08:41 | disposition home or self-care (01) ==
LOC: ED SRH 06:40
DX: M25.561 Pain in right knee (principal); G89.29 Other chronic pain; Z79.51 Long term (current) use of inhaled steroids; Z79.82 Long term (current) use of aspirin; Z79.1 Long term (current) use of non-steroidal anti-inflammatories (NSAID)

== ENCOUNTER 2016-11-08 15:13 | Emergency (ER) | payer OTHER ==
--- NOTE | 2016-11-08 17:16 | DIAGNOSTIC IMAGING REPORT ---
PROCEDURE: XR CHEST 2 VIEW INDICATION: FEVER TECHNIQUE: PA and lateral views. COMPARISON: None. FINDINGS: Lungs are clear. Heart and mediastinum are normal. Thorax is normal. IMPRESSION: 1. Negative chest.
--- NOTE | 2016-11-08 17:29 | ED ORDER SUMMARY ---
..... Patient: LINSEY JOHNSON OrderSheet [facility] VisitID: [id number] [place] [address] 36y, F Registration Date/Time: 11/08/2016 ORDER SHEET Weight: 53.5 kg (stated) Allergies: No Known Drug Allergy GENERAL ORDERS: Chest 2V Urgent (15:36 11/08/2016 EKoroleva P.A.-C) (Ack 15:37 KHoerner) (15:51 Mina) CBC w Diff Urgent (15:36 11/08/2016 EKoroleva P.A.-C) (Ack 15:37 KHoerner) (15:45 DDean R.N.) CMP Urgent (15:36 11/08/2016 EKoroleva P.A.-C) (Ack 15:37 KHoerner) (15:45 DDean R.N.) UA-Culture if indicated Urgent (15:46 11/08/2016 EKoroleva P.A.-C) (Ack 15:47 KHoerner) (16:10 KHoerner) MEDICATION ORDERS: IV FLUIDS: IV NS : initial bolus 1000 mL (1000 mL/hr), then 1000 mL/hr for X1 (NOW); Reuben (15:36 11/08/2016 EKoroleva P.A.-C) (Ack 15:45 DDean R.N.) (15:55 DDean R.N.) Toradol IV 30 mg (NOW) (15:46 11/08/2016 EKoroleva P.A.-C) (Ack 15:55 DDean R.N.) (16:39 DDean R.N.) Zofran IV 4 mg (NOW) (15:46 11/08/2016 EKoroleva P.A.-C) (Ack 15:55 DDean R.N.) (16:40 DDean R.N.) ORDER SHEET NOTES: [Electronically signed by Amy HawkinsAAnnmarie-Xavi (18:49 11/08/2016)] [Electronically signed by Pat Kenyon R.N. (21:11/08/2016)] [Electronically locked/signed by Pat Kenyon R.N. (21:11 11/08/2016)]
--- NOTE | 2016-11-08 17:29 | ED ORDER SUMMARY ---
..... Patient: LINSEY JOHNSON OrderSheet [facility] VisitID: [id number] [place] [address] 36y, F Registration Date/Time: 11/08/2016 ORDER SHEET Weight: 53.5 kg (stated) Allergies: No Known Drug Allergy GENERAL ORDERS: Chest 2V Urgent (15:36 11/08/2016 EKoroleva P.A.-C) (Ack 15:37 KHoerner) (15:51 Mina) CBC w Diff Urgent (15:36 11/08/2016 EKoroleva P.A.-C) (Ack 15:37 KHoerner) (15:45 DDean R.N.) CMP Urgent (15:36 11/08/2016 EKoroleva P.A.-C) (Ack 15:37 KHoerner) (15:45 DDean R.N.) UA-Culture if indicated Urgent (15:46 11/08/2016 EKoroleva P.A.-C) (Ack 15:47 KHoerner) (16:10 KHoerner) MEDICATION ORDERS: IV FLUIDS: IV NS : initial bolus 1000 mL (1000 mL/hr), then 1000 mL/hr for X1 (NOW); Reuben (15:36 11/08/2016 EKoroleva P.A.-C) (Ack 15:45 DDean R.N.) (15:55 DDean R.N.) Toradol IV 30 mg (NOW) (15:46 11/08/2016 EKoroleva P.A.-C) (Ack 15:55 DDean R.N.) (16:39 DDean R.N.) Zofran IV 4 mg (NOW) (15:46 11/08/2016 EKoroleva P.A.-C) (Ack 15:55 DDean R.N.) (16:40 DDean R.N.) ORDER SHEET NOTES: [Electronically signed by Amy HawkinsAAnnmarie-Xavi (18:49 11/08/2016)] [Electronically signed by Pat Kenyon R.N. (21:11/08/2016)] [Electronically locked/signed by Pat Kenyon R.N. (21:11 11/08/2016)]
--- NOTE | 2016-11-08 17:29 | ED NURSING NOTES ---
Clinical Report - Nurses [facility] [address] [place] [address] 11/08/2016 15:13 Patient: LINSEY JOHNSON TRIAGE Triage time 1525. Acuity: LEVEL 3. Chief Complaint: (general body aches and fever x 6 days, with dizziness and coughing. Had negative flu swab at clinic on 11/05). TETE COMA SCORE: [place] Coma Scale: 15- eyes open spontaneously (4); best verbal response- oriented x 4 (5); best motor response- obeys commands (6). --15:26 Pat Kenyon R.N. 15:20 11/08/16. BP: 131/86. HR: 82. RR: 22. O2 saturation: 96%. Temp: 99 F. Pain level now: 8/10. Additional comments: general body aches "hurt all over" . --15:26 Pat Kenyon R.N. Weight: 53.5 kg stated. Height/Length: 66 inches Per Patient. BMI: 19. --15:24 Pat Kenyon R.N. Medications Ibuprofen Oral 600 mg, daily as needed. Potassium Chloride Oral. ProAir HFA Inhalation. Vicodin Oral 7.5 mg, 4x a day. Vitamin B 12 Oral. Vitamin c Oral. Vitamin D Oral. --15:23 Pat Kenyon R.N. ASA 81mg daily (preventatively). --15:24 Pat Kenyon R.N. Allergies No Known Drug Allergy. --15:23 Pat Kenyon R.N. History Arrived by private vehicle. Historian: patient. Accompanied by mother. Primary physician (soheila (saw him on 11/03)). The patient has had fever, weakness, a cough and difficulty breathing. SOCIAL HX: Light tobacco smoker- less than 1/2 a pack per day (hasn't been smoking due to this illness). Occasional alcohol use. History of drug use: marijuana. --15:26 Pat Kenyon R.N. 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 --15:25 Pat Kenyon R.N. Bronchitis. Strep Throat. Pleurisy. Back Pain. GI Bleeding. Abdominal Pain. Atypical Chest Pain. Anxiety Reaction. Tension-Type Headache. --15:25 Pat Kenyon R.N. Hypokalemia [Resolved]. Abscess [Resolved]. Dental Caries [Resolved]. Arthritis [Resolved]. --15:25 Pat Kenyon R.N. Peptic Ulcer Disease [RuleOut]. Carbon Monoxide Poisoning [RuleOut]. Pleurisy [RuleOut]. --15:25 Pat Kenyon R.N. ADDITIONAL SURGERIES: Appendectomy. Back Surgery. . Dental Surgery. Hysterectomy. Tubal Ligation. --15:25 Pat Kenyon R.N. Interventions ID band on patient. To treatment room. --15:26 Pat Kenyon R.N. PHYSICAL ASSESSMENT 15:20. To room via wheelchair. Patient gowned. GENERAL / NEURO / PSYCH: Alert. Oriented X 4. Appears anxious. HEENT: No facial asymmetry noted. Mucous membranes are pink. RESPIRATORY: Respirations not labored. Chest wall tenderness. CVS: Capillary refill less than 2 seconds. GI / : Abdomen soft. SKIN: Skin is warm and dry. --15:27 Pat Kenyon R.N. NURSING PROGRESS NOTES 15:20. Patient gowned. Head of bed elevated. Reassurance given. Patient identifiers checked. Call light placed in reach. Bed placed in lowest position. Patient placed in chair. Patient ready for evaluation- chart flagged. --15:26 Pat Kenyon R.N. 15:43 11/08/2016 Site #1 started via IV in the right forearm with an 20g angiocath. Blood drawn: rainbow set. Labeled in the presence of the patient and sent to the lab. Saline lock flushed with 10 mL saline. --15:43 Yue Olivas R.N. Patient transported to radiology by stretcher with tech. --15:43 Yue Olivas R.N. 15:46 11/08/2016 Started bag #1 1000 mL IV Fluids IV NS (Saline); at 1000 mL/hr over 1 hour(s) via site #1 via IV pump. IV patency established. IV site checked: no pain, redness, or swelling. IV flushed thoroughly pre- and post-medication administration. --15:55 Pat Kenyon R.N. 16:10. Patient ID band checked for patient name and birthdate: patient confirmed urine collected with return of yellow-colored clear urine; sample sent to lab for urinalysis and culture. Specimen labeled in the presence of the patient (pt ambulated to bathroom steadon feet, escorted by staff. UA obtained and sent to lab). --16:38 Pat Kenyon R.N. 15:55 11/08/2016 Toradol IVP 30 mg given over 1 minute(s) via site #1. IV patency established. IV site checked: no pain, redness, or swelling. IV flushed thoroughly pre- and post-medication administration. IVP given by RN. --16:39 Pat Kenyon R.N. 15:55 11/08/2016 Zofran (Ondansetron HCl) IVP 4 mg given over 1 minute(s) via site #1. IV patency established. IV site checked: no pain, redness, or swelling. IV flushed thoroughly pre- and post-medication administration. IVP given by RN. --16:40 Pat Kenyon R.N. 17:20 11/08/2016 Site #1 removed upon discharge. Bandaid applied. --21:10 Pat Kenyon R.N. 17:20 11/08/2016 IV Fluids IV NS Discontinued: bag #1 infused upon discharge. Total amount infused: 1000 mL. IV patency established. IV site checked: no pain, redness, or swelling. IV flushed thoroughly. --21:10 Pat Kenyon R.N. DISPOSITION / DISCHARGE 1730. Condition at departure: stable. No learning barriers present. Discharge instructions provided and reviewed with the patient and parent. Reviewed medication(s) (zofran , tylenol). Patient and parent verbalized understanding. Written instructions provided in Sudanese. The patient was discharged home and accompanied by parent. She left the Emergency Department ambulatory and via private vehicle. Parent driving. --21:09 Pat Kenyon R.N. 17:30 11/08/16. BP: 107/62. HR: 59. RR: 18. O2 saturation: 96% on room air. Temp: deferred. Pain level now: 02/15. --21:09 Pat Kenyon R.N. Locked/Released at 11/08/2016 21:11 by Pat Kenyon R.N.
--- NOTE | 2016-11-08 17:29 | ED CLINICAL REPORT ---
Clinical Report - Physicians/Mid Levels [facility] [address] [place] [address] 11/08/2016 15:13 [id number] Time Seen: 15:36 Nov 08 2016. Arrived- By private vehicle. Historian- patient and family. HISTORY OF PRESENT ILLNESS Chief Complaint: COUGH, MUSCLE ACHES and "FLU". 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 The patient has had a cough and muscle aches. No nasal discharge. (patient reports weakness, generalized, fatigue over the last 7 days, mom was recently sick with some of the similar symptoms. Patient reports arthralgias. She denies any diarrhea. Denies any foreign trauma. Denies any antibiotic use.). Additional history - The patient has had contact with a sick individual. No recent travel. REVIEW OF SYSTEMS No vomiting, diarrhea, skin rash or enlarged lymph nodes. All systems otherwise negative, except as recorded above. 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 Bronchitis. Infectious Mononucleosis. Strep Throat. Pleurisy. Contusion. Back Pain. Tetanus Status. GI Bleeding. Abdominal Pain. LNMP - Last Normal Menstrual Period. Atypical Chest Pain. Immunizations. Chest Wall Pain. Substance Abuse. Anxiety Reaction. Abnormal Test. Tension-Type Headache. Neck Pain. Additional Surgeries: Appendectomy. Back Surgery. . Dental Surgery. Hysterectomy. Tubal Ligation. Medications: ASA 81mg daily (preventatively). Ibuprofen Oral 600 mg, daily as needed. Potassium Chloride Oral. ProAir HFA Inhalation. Vicodin Oral 7.5 mg, 4x a day. Vitamin B 12 Oral. Vitamin c Oral. Vitamin D Oral. Allergies: No Known Drug Allergy. SOCIAL HISTORY Current every day smoker. Alcohol use. History of drug use: marijuana. ADDITIONAL NOTES The nursing notes have been reviewed. PHYSICAL EXAM Vital Signs: 11/08/2016 15:20 BP: 131/86. HR: 82. RR: 22. O2 saturation: 96%. Temp: 99 F. Pain level now: 8/10. Appearance: Alert. Patient in moderate distress. Eyes: Eyes normal inspection. ENT: Ears normal. Pharynx normal. Uvula midline. No mouth ulcerations or peritonsillar mass. Neck: Normal inspection. CVS: Normal heart rate and rhythm. Respiratory: No respiratory distress. Breath sounds normal. No retractions. Abdomen: Soft and nontender. No organomegaly. No abdominal tenderness. The bowel sounds are not abnormal. Neuro: Oriented X 3. LABS, X-RAYS, AND EKG Chest X-ray: (IMPRESSION: 1. Negative chest. Electronically Final signed by:Declan Monroe MD 11/08/2016 5:12:58 PM). Laboratory Tests: UA-Culture if indicated: (KAYLEIGH: 11/08/2016 16:00) ( MsgRcvd 11/08/2016 17:00) Final results Test Result Flag Units (Reference) URINE COLOR YELLOW URINE APPEARANCE CLEAR URINE GLUCOSE NEGATIVE (NEGATIVE) URINE BILIRUBIN NEGATIVE (NEGATIVE) URINE KETONE TRACE (NEGATIVE) URINE SPECIFIC GRAVITY <= 1.005 L (1.010-1.030) URINE PH 5.5 (5.0-8.0) URINE PROTEIN NEGATIVE (NEGATIVE) URINE UROBILINOGEN 0.2 EU/dL (0.2-1.0) URINE NITRITE NEGATIVE (NEGATIVE) URINE BLOOD TRACE-INTACT (NEGATIVE) URINE LEUK ESTERASE NEGATIVE (NEGATIVE) URINE RBC NONE SEEN rbc/hpf (0-1) URINE WBC NONE SEEN wbc/hpf (0-1) URINE EPITHELIAL CELLS 0-1 EPI/hpf (0-5) URINE BACTERIA NONE SEEN (NONE SEEN) URINE COMMENT CULT NOT INDICATED URINE CULTURES ARE SET-UP BASED ON THE FOLLOWING CRITERIA:POSITIVE NITRITEPOSITIVE LEUKOCYTE ESTERASEGREATER THAN 10 WHITE BLOOD CELLSMODERATE (2+) OR GREATER BACTERIA CBC w Diff: (KAYLEIGH: 11/08/2016 15:35) ( MsgRcvd 11/08/2016 16:17) Final results Test Result Flag Units (Reference) WHITE BLOOD COUNT 5.3 K/uL (4.5-11.5) RED BLOOD COUNT 4.32 M/uL (4.00-5.20) HEMOGLOBIN 13.9 gm/dL (12.0-16.0) HEMATOCRIT 41.4 % (36.0-46.0) MEAN CELL VOLUME 96 fL (80-100) MEAN CORPUSCULAR HGB 32 pg (26-34) MEAN CORPUSCULAR HGB CONC 34 g/dL (31-37) RED CELL DISTRIBUTION WIDTH 13.7 % (11.6-14.8) PLATELET COUNT 137 L K/uL (150-400) NEUTROPHIL % 61.9 % (50-75) LYMPH % 28.3 % (25-40) MONO % 9.0 % (3-14) EOSINOPHIL % 0.4 % (0-4) BASOPHIL % 0.4 % (0-2) CMP: (KAYLEIGH: 11/08/2016 15:35) ( MsgRcvd 11/08/2016 16:23) Final results Test Result Flag Units (Reference) GLUCOSE 85 mg/dL (70-110) BUN 10 mg/dL (7-18) CREATININE 0.9 mg/dL (0.6-1.3) Estimated GFR >60 mL/min Estimated GFR- >60 mL/min Note: Persistent reduction over 3 months in eGFR<60 mL/min/1.73 m2 defines CKD. Patients with eGFR values>=60 mL/min/1.73 m2 may also have CKD if evidence ofpersistent proteinuria. Additional information may be foundat www.kidney.org. SODIUM 139 mmol/L (136-145) POTASSIUM 3.7 mmol/L (3.5-5.1) CHLORIDE 100 mmol/L (98-107) CARBON DIOXIDE 26 mmol/L (21-32) CALCIUM 8.8 mg/dL (8.5-10.1) TOTAL PROTEIN 7.6 g/dL (6.4-8.2) ALBUMIN 4.1 g/dL (3.3-5.0) BILIRUBIN, TOTAL 0.4 mg/dL (0.0-1.0) ALKALINE PHOSPHATASE 60 U/L (46-116) AST (SGOT) 29 U/L (15-37) ALT (SGPT) 31 U/L (12-78) . PROGRESS AND PROCEDURES Course of Care: DC VS: 106/62, 59,96% RA Patient at this time in no distress, no identical signs of acute illness, suspect she had a viral influenza, so mom was recently ill with the same symptoms. Chest x-ray was unremarkable. No signs of acute infectious process. Lungs clear. Patient to f/u outpatient. Patient is stable. Physical exam findings are improved. Symptoms better. Patient/family counseled. Disposition: Discharged. CLINICAL IMPRESSION Acute viral syndrome INSTRUCTIONS No strenuous activity. Do not work for two days. Drink plenty of fluids. Prescription Medications: Zofran (orally disintegrating tablets) 4 mg: take 1 orally every 6 hours for 3 days as needed for nausea. Dispense ten (10). No refill. Substitution is permissible. Follow-up: Follow up with your doctor in three days. (Electronically signed by Amy Hawkins P.A.-C 11/08/2016 18:49)
--- NOTE | 2016-11-08 21:11 | ED MED RECONCILIATION SUMMARY ---
Patient: LINSEY JOHNSON Medication Reconciliation Report [facility] VisitID: [id number] [place] [address] 36y, F Registration Date/Time: 11/08/2016 Weight: 53.5 kg Height/Length: 66 in. BMI: 19.0 ALLERGIES: No Known Drug Allergy The patient's Home Medications are listed below: THE FOLLOWING MEDICATIONS NEED TO BE RECONCILED: ASA 81mg daily (preventatively) Ibuprofen Oral 600 mg, daily Potassium Chloride Oral ProAir HFA Inhalation Vicodin Oral 7.5 mg, 4x a day Vitamin B 12 Oral Vitamin c Oral Vitamin D Oral The source(s) of the original Home Medication information: Not obtained. The following Medications were given to the patient in the Emergency Department: IV NS IV Fluids bolus 0, then 1000 mL/hr, administered: 11/08/2016 3:46:00 PM Toradol [IVP] IVP 30 mg, administered: 11/08/2016 3:55:00 PM Zofran [IVP] IVP 4 mg, administered: 11/08/2016 3:55:00 PM The following Medications were prescribed to the patient: Zofran (orally disintegrating tablets) 4 mg: take 1 orally every 6 hours for 3 days as needed for nausea. Dispense ten (10). No refill. Substitution is permissible. -- Amy Hawkins P.A.-C
--- NOTE | 2016-11-08 21:11 | ED DISCHARGE INSTRUCTIONS ---
Patient: LINSEY JOHNSON General Instructions [facility] VisitID: [id number] [place] [address] 36y, F Registration Date/Time: 11/08/2016 Acute viral syndrome INSTRUCTIONS No strenuous activity. Do not work for two days. Drink plenty of fluids. Prescription Medications: Zofran (orally disintegrating tablets) 4 mg: take 1 orally every 6 hours for 3 days as needed for nausea. Dispense ten (10). No refill. Substitution is permissible. Follow-up: Follow up with your doctor in three days. ADDITIONAL INFORMATION Viral Syndrome (Adult) A viral illness may cause a number of symptoms. The symptoms depend on the part of the body that the virus affects. If it settles in the nose, throat, and lungs, it may cause cough, sore throat, congestion, and sometimes headache. If it settles in the stomach and intestinal tract, it may cause vomiting and diarrhea. Sometimes it causes vague symptoms like "aching all over," feeling tired, loss of appetite, or fever. A viral illness usually lasts1 to 2 weeks, but sometimes it lasts longer. In some cases, a more serious infection can look like a viral syndrome in the first few days of the illness. You may need anotherexam and additional teststo know the difference.Watch for the warning signs listed below. Home care Follow these guidelines for taking care of yourself at home: If symptoms are severe, rest at home for the first 2 to 3 days. Stay away from cigarette smoke - both your smoke and the smoke from others. You may useacetaminophen or ibuprofen for fever, muscle aching, and headache, unless another medicine was prescribed for this.If you have chronic liver or kidney disease or ever had a stomach ulcer or GI bleeding, talk with your doctor before using these medicinesNo one who is younger than 18 and ill with a fever should take aspirin. It may cause severe liver damage. Your appetite may be poor, so a light diet is fine. Avoid dehydration by drinking 8 to 12 8-ounce glasses of fluids each day. This may include water; orange juice; lemonade; apple, grape, and cranberry juice; clear fruit drinks; electrolyte replacement and sports drinks; and decaffeinated teas and coffee. If you have been diagnosed with a kidney disease, ask your doctor how much and what types of fluids you should drink to prevent dehydration. If you have kidney disease, drinking too much fluid can cause it build up in the your body and be dangerous to your health. Wlnm-sro-utjxjkl remedies won't shorten the length of the illness but may be helpful forcough, sore throat; and nasal and sinus congestion. Don't use decongestants if you have high blood pressure. Follow-up care Follow up with your health care provider if you do not improve over the next week. When to seek medical care Get prompt medical attention if any of these occur: Cough with lots of colored sputum (mucus) or blood in your sputum Chest pain, shortness of breath, wheezing, or difficulty breathing Severe headache; face, neck, or ear pain Severe, constant pain in the lower right side of your belly (abdominal) Continued vomiting (cant keep liquids down) Frequent diarrhea (more than 5 times a day); blood (red or black color) or mucus in diarrhea Feeling weak, dizzy, or like you are going to faint Extreme thirst Fever of 100.4 F (38 C) oral or higher, not better with fever medication Convulsion Ondansetron Oral disintegrating tablet What is this medicine? ONDANSETRON (on CHRISTIANO se bhargavi) is used to treat nausea and vomiting caused by chemotherapy. It is also used to prevent or treat nausea and vomiting after surgery. How should I use this medicine? These tablets are made to dissolve in the mouth. Do not try to push the tablet through the foil backing. With dry hands, peel away the foil backing and gently remove the tablet. Place the tablet in the mouth and allow it to dissolve, then swallow. While you may take these tablets with water, it is not necessary to do so. Talk to your commercial singer regarding the use of this medicine in children. Special care may be needed. What side effects may I notice from receiving this medicine? Side effects that you should report to your doctor or health in home caregiver as soon as possible: allergic reactions like skin rash, itching or hives, swelling of the face, lips, or tongue breathing problems dizziness fast or irregular heartbeat feeling faint or lightheaded, falls fever and chills swelling of the hands and feet tightness in the chest Side effects that usually do not require medical attention (report to your doctor or health in home caregiver if they continue or are bothersome): constipation or diarrhea headache What may interact with this medicine? Do not take this medicine with any of the following medications: -apomorphine -cisapride -dofetilide -dronedarone -pimozide -thioridazine -ziprasidone This medicine may also interact with the following medications: -carbamazepine -phenytoin -rifampicin -tramadol -other medicines that prolong the QT interval (cause an abnormal heart rhythm) What if I miss a dose? If you miss a dose, take it as soon as you can. If it is almost time for your next dose, take only that dose. Do not take double or extra doses. Where should I keep my medicine? Keep out of the reach of children. Store between 2 and 30 degrees C (36 and 86 degrees F). Throw away any unused medicine after the expiration date. What should I tell my health care provider before I take this medicine? They need to know if you have any of these conditions: heart disease history of irregular heartbeat liver disease low levels of magnesium or potassium in the blood an unusual or allergic reaction to ondansetron, granisetron, other medicines, foods, dyes, or preservatives or trying to get breast-feeding What should I watch for while using this medicine? Check with your doctor or health in home caregiver as soon as you can if you have any sign of an allergic reaction. You have been given the following additional information: Viral Syndrome (Adult) Ondansetron Oral disintegrating tablet No strenuous activity. Do not work for two days. (Electronically signed by Amy Hawkins P.A.-C 11/08/2016 18:49)
--- NOTE | 2016-11-08 21:11 | ED MED RECONCILIATION SUMMARY ---
Patient: LINSEY JOHNSON Medication Reconciliation Report [facility] VisitID: [id number] [place] [address] 36y, F Registration Date/Time: 11/08/2016 Weight: 53.5 kg Height/Length: 66 in. BMI: 19.0 ALLERGIES: No Known Drug Allergy The patient's Home Medications are listed below: THE FOLLOWING MEDICATIONS NEED TO BE RECONCILED: ASA 81mg daily (preventatively) Ibuprofen Oral 600 mg, daily Potassium Chloride Oral ProAir HFA Inhalation Vicodin Oral 7.5 mg, 4x a day Vitamin B 12 Oral Vitamin c Oral Vitamin D Oral The source(s) of the original Home Medication information: Not obtained. The following Medications were given to the patient in the Emergency Department: IV NS IV Fluids bolus 0, then 1000 mL/hr, administered: 11/08/2016 3:46:00 PM Toradol [IVP] IVP 30 mg, administered: 11/08/2016 3:55:00 PM Zofran [IVP] IVP 4 mg, administered: 11/08/2016 3:55:00 PM The following Medications were prescribed to the patient: Zofran (orally disintegrating tablets) 4 mg: take 1 orally every 6 hours for 3 days as needed for nausea. Dispense ten (10). No refill. Substitution is permissible. -- Amy Hawkins P.A.-C
--- NOTE | 2016-11-08 21:11 | ED MAR SUMMARY ---
..... Medication Administration Record [facility] [address] [place] [address] Patient: LINSEY JOHNSON Visit ID: [id number] 36y, F Weight: 53.5 kg Height/Length: 66 in BMI: 19 ALLERGIES: No Known Drug Allergy Start 15:46 11/08/2016 Pat Kenyon R.N., Stop 17:20 11/08/2016 Pat Kenyon R.N. Medication Administered: IV NS (SALINE), Dose: IV Fluids over 1 hour(s), Rate: 1000 mL/hr, Dispensed: 1000 mL bag, Site: #1 right forearm. Medication Ordered: IV NS : initial bolus 1000 mL (1000 mL/hr), then 1000 mL/hr for X1 (NOW); Reuben. Given 15:55 11/08/2016 Pat Kenyon R.N. Medication Administered: TORADOL [IVP], Dose: 30 mg IVP over 1 minute(s), Site: #1 right forearm. Medication Ordered: Toradol IV 30 mg (NOW). Given 15:55 11/08/2016 Pat Kenyon R.N. Medication Administered: ZOFRAN [IVP] (ONDANSETRON HCL), Dose: 4 mg IVP over 1 minute(s), Site: #1 right forearm. Medication Ordered: Zofran IV 4 mg (NOW).
--- NOTE | 2016-11-08 21:11 | ED DISCHARGE INSTRUCTIONS ---
Patient: LINSEY JOHNSON General Instructions [facility] VisitID: [id number] [place] [address] 36y, F Registration Date/Time: 11/08/2016 Acute viral syndrome INSTRUCTIONS No strenuous activity. Do not work for two days. Drink plenty of fluids. Prescription Medications: Zofran (orally disintegrating tablets) 4 mg: take 1 orally every 6 hours for 3 days as needed for nausea. Dispense ten (10). No refill. Substitution is permissible. Follow-up: Follow up with your doctor in three days. ADDITIONAL INFORMATION Viral Syndrome (Adult) A viral illness may cause a number of symptoms. The symptoms depend on the part of the body that the virus affects. If it settles in the nose, throat, and lungs, it may cause cough, sore throat, congestion, and sometimes headache. If it settles in the stomach and intestinal tract, it may cause vomiting and diarrhea. Sometimes it causes vague symptoms like "aching all over," feeling tired, loss of appetite, or fever. A viral illness usually lasts1 to 2 weeks, but sometimes it lasts longer. In some cases, a more serious infection can look like a viral syndrome in the first few days of the illness. You may need anotherexam and additional teststo know the difference.Watch for the warning signs listed below. Home care Follow these guidelines for taking care of yourself at home: If symptoms are severe, rest at home for the first 2 to 3 days. Stay away from cigarette smoke - both your smoke and the smoke from others. You may useacetaminophen or ibuprofen for fever, muscle aching, and headache, unless another medicine was prescribed for this.If you have chronic liver or kidney disease or ever had a stomach ulcer or GI bleeding, talk with your doctor before using these medicinesNo one who is younger than 18 and ill with a fever should take aspirin. It may cause severe liver damage. Your appetite may be poor, so a light diet is fine. Avoid dehydration by drinking 8 to 12 8-ounce glasses of fluids each day. This may include water; orange juice; lemonade; apple, grape, and cranberry juice; clear fruit drinks; electrolyte replacement and sports drinks; and decaffeinated teas and coffee. If you have been diagnosed with a kidney disease, ask your doctor how much and what types of fluids you should drink to prevent dehydration. If you have kidney disease, drinking too much fluid can cause it build up in the your body and be dangerous to your health. Baix-czb-zohhtbj remedies won't shorten the length of the illness but may be helpful forcough, sore throat; and nasal and sinus congestion. Don't use decongestants if you have high blood pressure. Follow-up care Follow up with your health care provider if you do not improve over the next week. When to seek medical care Get prompt medical attention if any of these occur: Cough with lots of colored sputum (mucus) or blood in your sputum Chest pain, shortness of breath, wheezing, or difficulty breathing Severe headache; face, neck, or ear pain Severe, constant pain in the lower right side of your belly (abdominal) Continued vomiting (cant keep liquids down) Frequent diarrhea (more than 5 times a day); blood (red or black color) or mucus in diarrhea Feeling weak, dizzy, or like you are going to faint Extreme thirst Fever of 100.4 F (38 C) oral or higher, not better with fever medication Convulsion Ondansetron Oral disintegrating tablet What is this medicine? ONDANSETRON (on CHRISTIANO se bhargavi) is used to treat nausea and vomiting caused by chemotherapy. It is also used to prevent or treat nausea and vomiting after surgery. How should I use this medicine? These tablets are made to dissolve in the mouth. Do not try to push the tablet through the foil backing. With dry hands, peel away the foil backing and gently remove the tablet. Place the tablet in the mouth and allow it to dissolve, then swallow. While you may take these tablets with water, it is not necessary to do so. Talk to your processing clerk regarding the use of this medicine in children. Special care may be needed. What side effects may I notice from receiving this medicine? Side effects that you should report to your doctor or health residential care facility manager as soon as possible: allergic reactions like skin rash, itching or hives, swelling of the face, lips, or tongue breathing problems dizziness fast or irregular heartbeat feeling faint or lightheaded, falls fever and chills swelling of the hands and feet tightness in the chest Side effects that usually do not require medical attention (report to your doctor or health residential care facility manager if they continue or are bothersome): constipation or diarrhea headache What may interact with this medicine? Do not take this medicine with any of the following medications: -apomorphine -cisapride -dofetilide -dronedarone -pimozide -thioridazine -ziprasidone This medicine may also interact with the following medications: -carbamazepine -phenytoin -rifampicin -tramadol -other medicines that prolong the QT interval (cause an abnormal heart rhythm) What if I miss a dose? If you miss a dose, take it as soon as you can. If it is almost time for your next dose, take only that dose. Do not take double or extra doses. Where should I keep my medicine? Keep out of the reach of children. Store between 2 and 30 degrees C (36 and 86 degrees F). Throw away any unused medicine after the expiration date. What should I tell my health care provider before I take this medicine? They need to know if you have any of these conditions: heart disease history of irregular heartbeat liver disease low levels of magnesium or potassium in the blood an unusual or allergic reaction to ondansetron, granisetron, other medicines, foods, dyes, or preservatives or trying to get breast-feeding What should I watch for while using this medicine? Check with your doctor or health residential care facility manager as soon as you can if you have any sign of an allergic reaction. You have been given the following additional information: Viral Syndrome (Adult) Ondansetron Oral disintegrating tablet No strenuous activity. Do not work for two days. (Electronically signed by Amy Hawkins P.A.-C 11/08/2016 18:49)
--- NOTE | 2016-11-08 21:11 | ED MAR SUMMARY ---
..... Medication Administration Record [facility] [address] [place] [address] Patient: LINSEY JOHNSON Visit ID: [id number] 36y, F Weight: 53.5 kg Height/Length: 66 in BMI: 19 ALLERGIES: No Known Drug Allergy Start 15:46 11/08/2016 Pat Kenyon R.N., Stop 17:20 11/08/2016 Pat Kenyon R.N. Medication Administered: IV NS (SALINE), Dose: IV Fluids over 1 hour(s), Rate: 1000 mL/hr, Dispensed: 1000 mL bag, Site: #1 right forearm. Medication Ordered: IV NS : initial bolus 1000 mL (1000 mL/hr), then 1000 mL/hr for X1 (NOW); Reuben. Given 15:55 11/08/2016 Pat Kenyon R.N. Medication Administered: TORADOL [IVP], Dose: 30 mg IVP over 1 minute(s), Site: #1 right forearm. Medication Ordered: Toradol IV 30 mg (NOW). Given 15:55 11/08/2016 Pat Kenyon R.N. Medication Administered: ZOFRAN [IVP] (ONDANSETRON HCL), Dose: 4 mg IVP over 1 minute(s), Site: #1 right forearm. Medication Ordered: Zofran IV 4 mg (NOW).
== END 2016-11-08 17:30 | disposition home or self-care (01) ==
LOC: ED SRH 15:13
DX: B34.9 Viral infection, unspecified (principal); F17.210 Nicotine dependence, cigarettes, uncomplicated; Z79.82 Long term (current) use of aspirin; Z90.710 Acquired absence of both cervix and uterus; Z79.899 Other long term (current) drug therapy
CPT/HCPCS: 90004; 90100; 95059